=== PATIENT | female | born 1955 | race Caucasian/White ===

== ENCOUNTER → 2022-04-25 | Day surgery (SDC) | payer MEDICARE ==
[~2022-04-25] VITALS: Ht 162.5 cm; Wt 54.4 kg
[~2022-04-25] MED LIST: DOXYCYCLINE HY100 M3 PO; GABAPENTIN100 M2 PO; Glimepiride1 MG PO; METFORMIN850 MG PO; TRAMADOL HCL50 MG PO; TRAZODONE50 MG PO; VITAMIN B1250 MCG SC; VITAMIN D3 COM1 EACH PO; VITAMIN D3125 MCG PO; XARELTO10 MG PO; XARELTO2.5 MG PO; ZESTRIL20 MG PO
[2022-04-25 10:01] VITALS: BP 157/47
[2022-04-25 11:55] VITALS: BP 113/43
[2022-04-25 12:10] VITALS: BP 120/42
[2022-04-25 12:25] VITALS: BP 104/41
[2022-04-26 13:06] LABS: ACID FAST SPEC PROCESSING Tissue Grinding (.)
[2022-04-26 14:08] LABS: ACID FAST SPEC PROCESSING Tissue Grinding (.)
== END | disposition home or self-care (01) ==
LOC: SDC 04-23 08:45
PROVIDERS: ATTEND Podiatrist
DX: S91.301A Unspecified open wound, right foot, initial encounter (principal); M86.671 Other chronic osteomyelitis, right ankle and foot; I10 Essential (primary) hypertension; E11.9 Type 2 diabetes mellitus without complications; F41.9 Anxiety disorder, unspecified; F17.210 Nicotine dependence, cigarettes, uncomplicated; I25.10 Atherosclerotic heart disease of native coronary artery without angina pectoris; E78.5 Hyperlipidemia, unspecified; Z90.49 Acquired absence of other specified parts of digestive tract; Z90.710 Acquired absence of both cervix and uterus; X58.XXXA Exposure to other specified factors, initial encounter; Y93.89 Activity, other specified; Y92.89 Other specified places as the place of occurrence of the external cause; Y99.8 Other external cause status